=== PATIENT | female | born 1990 | race Caucasian/White ===

== ENCOUNTER 2016-08-06 14:00 | Outpatient (CLI) | payer OTHER ==
--- NOTE | 2016-08-06 16:53 | DIAGNOSTIC IMAGING REPORT ---
PROCEDURE: US OB DETAILED ANATOMIC INDICATION: LATE TO CARE,DATING TECHNIQUE: Hare scale, color, and spectral Doppler images of the second trimester gravid uterus were obtained. COMPARISON: None. FINDINGS: A single living intrauterine is in vertex presentation. There is regular cardiac activity at a rate of 125 beats per minute. The placenta is posterior and fundal and away from the internal cervical os. The cervix is closed measuring approximately 4 cm in length. The amniotic fluid volume is subjectively normal. Biparietal diameter 8.5 cm at 34 weeks and 1 day Head circumference 30.7 cm at 34 weeks and 1 day Abdominal circumference 31.5 cm at 35 weeks and 3-day Femur length 6.9 cm of 35 weeks and 2 days Head to abdominal circumference ratio and femur length to abdominal circumference ratios are normal. Estimated weight 5.72 pounds Composite gestational age 34 weeks and 5 days, NICOLÁS 09/12/2016 There was visualization of a number of normal structures including the intracranial contents, facial features, spine, diaphragm, fluid-filled stomach, kidneys, abdomen, urinary bladder, and lower extremities, and genitals. A three-vessel umbilical cord, normal and placental cord insertion sites were seen. IMPRESSION: 1. Single living intrauterine with a composite gestational age of 34 weeks and 5 days, NICOLÁS 09/12/2016 2. Due to advanced gestational age anatomy not well seen including the posterior fossa, nuchal region, heart views, digits, and left humerus.
--- NOTE | 2016-08-06 18:14 | DIAGNOSTIC IMAGING REPORT ---
PROCEDURE: US OB TRANSVAGINAL INDICATION: CHECK CERVICAL LENGTH TECHNIQUE: Hare scale, color, and spectral Doppler images of the third trimester gravid uterus were obtained. COMPARISON: None. FINDINGS: Single intrauterine with vertex presentation, posterior fundal placenta without previa and heart rate 125 bpm. FABY measures 11.6 cm. Cervix measures 3.2 cm. The anatomic survey, including the facial structures, spine, outflow tracts, chest and diaphragm, stomach and abdomen, three-vessel cord and cord insertion, bladder and pelvis, kidneys, right humerus and bilateral extremities, is within normal limits. The cerebellum, cisterna magna, nuchal region, digits, heart views and left humerus are not well visualized due to position. BPD 8.5 cm, 34 weeks 1 day; head circumference 30.7 cm, 34 weeks 1 day; abdominal circumference 31.5 cm, 35 weeks 3 days; femur length 6.9 cm, 35 weeks 2 days. Composite age 34 weeks 5 days. NICOLÁS 09/12/2016. Estimated weight 2596 g plus/minus 389 g (5.72 pounds). IMPRESSION: 1. Single live intrauterine , vertex, 34 weeks 5 days 2. NICOLÁS 09/12/2016 3. Cerebellum, cisterna magna, nuchal region, digits, heart views and left humerus not well visualized due to position. Remainder of the anatomic survey is unremarkable.
== END 2016-08-06 23:00 | disposition home or self-care (01) ==
LOC: US SRH 14:00
DX: Z34.93 Encounter for supervision of normal pregnancy, unspecified, third trimester (principal); Z3A.34 34 weeks gestation of pregnancy
CPT/HCPCS: 90004; 90074; 90078; 90261; 90364; 90599; 90600; 90605; 90606; 90710; 90851; 92863; 93140; 98480; 99777

== ENCOUNTER 2016-08-24 00:47 | Outpatient (CLI) | payer OTHER ==
[~2016-08-24] VITALS: Ht 157.5 cm; Wt 89.4 kg
[2016-08-24] MEDS ORDERED: PRENATAL VITAMINS PO (02:06)
[2016-08-24] MEDS ORDERED: IRON325 MG PO (02:07)
[2016-08-24] MEDS ORDERED: TUMS500 MG PO (02:08)
== END 2016-08-24 03:00 | disposition home or self-care (01) ==
LOC: OBC SRH 00:47 → OB SRH 01:03 → OBC SRH 03:00
PROC: 4A0HXCZ Measurement of Products of Conception, Cardiac Rate, External Approach (ICD-10-PCS; principal; 2016-08-24)
DX: O47.1 False labor at or after 37 completed weeks of gestation (principal); Z3A.37 37 weeks gestation of pregnancy

== ENCOUNTER 2016-08-30 03:08 | Inpatient (IN) | payer OTHER ==
[~2016-08-30] VITALS: Ht 157.5 cm; Wt 88.0 kg
[2016-08-30] VITALS (11 sets, daily range): BP systolic 109–135; BP diastolic 60–79
[~2016-08-30 03:08] MED LIST: IRON325 MG PO; PRENATAL VITAMINS PO; TUMS500 MG PO
[2016-08-31 04:22] VITALS: BP 122/78
[2016-08-31 07:50] VITALS: BP 122/71
--- NOTE | 2016-08-31 08:30 | NUR ---
Dr Reid has seen pt this AM & New orders entered for DC pt home noted.
--- NOTE | 2016-08-31 09:05 | Provider's Discharge Care Plan ---
Problem, Goal, Plan Problem List 1. Delivery in a completely normal case Goals: No readmissions Instructions: Follow up as needed
--- NOTE | 2016-08-31 09:05 | Provider's Discharge Care Plan ---
Problem, Goal, Plan Problem List 1. Delivery in a completely normal case Goals: No readmissions Instructions: Follow up as needed
--- NOTE | 2016-08-31 10:00 | NUR ---
Pt & FOB both had watched CD of "New born care" & "Child car safety" this morning noted.
--- NOTE | 2016-08-31 13:30 | NUR ---
Pt took a shower & tolerated well.
--- NOTE | 2016-08-31 14:20 | NUR ---
Pt was given DC instructions & F/U infos. Indicated understood. Pt DC'd home with FOB accompanied by & hospital escort via ambulation done.
== END 2016-08-31 14:20 | disposition home or self-care (01) | DRG 560 ==
LOC: OBC SRH 03:08 → OB SRH 03:08 → OBC SRH 04:53 → OB SRH 04:55
PROVIDERS: ADMIT Obstetrics & Gynecology
PROC: 10E0XZZ Delivery of Products of Conception, External Approach (ICD-10-PCS; principal; 2016-08-30)
PROC: 0HQ9XZZ Repair Perineum Skin, External Approach (ICD-10-PCS; principal; 2016-08-30)
DX: O70.0 First degree perineal laceration during delivery (principal); Z37.0 Single live birth; Z3A.38 38 weeks gestation of pregnancy
CPT/HCPCS: 40011; 92237; 95059